=== PATIENT | female | born 1970 | race Caucasian/White ===

== ENCOUNTER 2024-09-10 10:54 | Outpatient (CLI) | payer OTHER | END 2024-09-10 10:55 | disposition home or self-care (01) | LOC: CSHMRI 10:54 | PROVIDERS: ATTEND Psychiatry & Neurology Neurology | DX: Z01.818 Encounter for other preprocedural examination (principal); R51.9 Headache, unspecified | CPT/HCPCS: 70551; 71045; 76014 ==